=== PATIENT | female | born 1950 | race Caucasian/White ===

== ENCOUNTER 2018-04-23 08:51 | Day surgery (SDC) | payer MEDICARE, MEDICAID ==
[2015-06-28 19:20] VITALS: BMI 35.1
[2018-04-23] MEDS ORDERED: Sodium Chloride 0.9% 1,000 ML IV SCH (10:00)
[2018-04-23] MEDS ORDERED: Propofol 10 mg/ml Inj (20 ML) ONE (12:21)
[2018-04-23] MEDS ORDERED: Midazolam 2 MG/2 ML VIAL ONE (12:21)
[2018-04-23 13:03] VITALS: O2SAT 100
[2018-04-23 14:30] VITALS: BP 142/90; PULSE 74; RESP 16; TEMP 98
== END 2018-04-23 14:24 | disposition home or self-care (01) ==
LOC: ENDO 08:51
PROVIDERS: ATTEND Internal Medicine Gastroenterology
DX: K25.9 Gastric ulcer, unspecified as acute or chronic, without hemorrhage or perforation (principal); K29.30 Chronic superficial gastritis without bleeding; K44.9 Diaphragmatic hernia without obstruction or gangrene; K31.9 Disease of stomach and duodenum, unspecified; K21.9 Gastro-esophageal reflux disease without esophagitis
CPT/HCPCS: 43239; 88305; 88312; 88342; J2001; J2250; J2704; J7030; J7040